=== PATIENT | male | born 1995 | race Two or more races ===

== ENCOUNTER 2017-01-07 10:16 | Emergency (ER) | payer OTHER ==
[2017-01-07] MEDS ORDERED: METOCLOPRAMIDE HCL 5 MG/ML 2ML VIAL ONE (10:45)
[2017-01-07] MEDS ORDERED: METHYLPRED SOD SUCCINATE 125 MG VIAL ONE (10:45)
[2017-01-07] MEDS ORDERED: ONDANSETRON 4 MG/2ML 2 ML VIAL ONE (10:45)
[2017-01-07 10:49] LABS: ABSOLUTE NEUTROPHIL COUNT 5.3 K/mm3 (1.8-7.7); BASO # 0.1 K/mm3 (0.0-0.2); BASO % 0.8 % (0.2-1.0); EOS # 0.2 (0.0-0.5); EOS % 1.7 % (0.9-2.9); HEMATOCRIT 40.2 % (32.0-52.0); HEMOGLOBIN 14.4 gm/l (14.0-18.0); IMM NEUT% 0.3 % (0-1); LYMPH # 4.4 (1.0-4.8); LYMPH % 41.9 % (15-45); MEAN CORPUSCULAR HEMOGLOBIN 31.5 pg (27.0-31.0); MEAN CORPUSCULAR HGB CONC 35.8 g/dl (33.0-37.0); MEAN PLATELET VOLUME 9.7 fl (7.4-10.4); MONO # 0.5 (0.0-0.8); MONO % 4.4 % (4-12); NEUT % 50.9 % (43-75); PLATELET COUNT 399 K/mm3 (130-400); RED CELL DISTRIBUTION WIDTH 11.6 % (11.5-14.5)
[2017-01-07 12:11] LABS: ALB/GLOB RATIO 1.7 (>1.0); ALBUMIN 4.7 gm/dL (3.5-5.7); ALT/SGPT 15 U/L (7-52); BLOOD UREA NITROGEN 9 mg/dL (7-25); BUN/CREATININE RATIO 9 (6-20); CALCIUM 9.3 mg/dL (8.6-10.3)
== END 2017-01-07 14:02 | disposition home or self-care (01) ==
LOC: ED 10:16
DX: R11.2 Nausea with vomiting, unspecified (principal); R73.9 Hyperglycemia, unspecified; F17.210 Nicotine dependence, cigarettes, uncomplicated
CPT/HCPCS: 85025; 80053; 96375; 99284; 96374; 99283; J2765; J2930; J2405